=== PATIENT | female | born 1995 | race Caucasian/White ===

== ENCOUNTER → 2021-05-29 | Outpatient (REF) | LOC: M LABSMTC 10:54 | PROVIDERS: ATTEND Pediatrics | DX: Z11.52 Encounter for screening for COVID-19 (principal) ==

== ENCOUNTER 2021-07-12 09:38 | Emergency (ER) | payer OTHER ==
[~2021-07-12] VITALS: Ht 157.5 cm; Wt 91.9 kg
[2021-07-12] MEDS ORDERED: ACET325C5 PO (09:45)
[2021-07-12] MEDS ORDERED: dexameTHASONE 4 MG/ML 1ML VIAL (J1100 PER 1MG) PO ONE ×2 (10:45→10:55)
[2021-07-12] MEDS ORDERED: AMOXICILLIN 500 MG CAP PO ONE (10:45)
[2021-07-12] MEDS ORDERED: AMOX500C PO (10:48)
[2021-07-12] MEDS ORDERED: LIDO2SOL17 PO (10:48)
[2021-07-12 11:19] VITALS: BP 122/64
== END 2021-07-12 11:11 | disposition home or self-care (01) ==
LOC: M ED 09:38
DX: J02.0 Streptococcal pharyngitis (principal)
CPT/HCPCS: 87880; 99283; J1100

== ENCOUNTER → 2021-12-01 | Outpatient (REF) ==
[~2021-12-01] MED LIST: ACET325C5 PO; AMOX500C PO; LIDO2SOL17 PO
== END ==
LOC: M EMP 12:22
PROVIDERS: ATTEND Family Medicine
DX: Z11.52 Encounter for screening for COVID-19 (principal)

== ENCOUNTER → 2022-04-08 | Outpatient (REF) ==
[2022-04-08 10:13] LABS: RSV AMPLIFICATION NEGATIVE (NEGATIVE)
== END ==
LOC: M EMP 08:46
PROVIDERS: ATTEND Family Medicine
DX: Z20.828 Contact with and (suspected) exposure to other viral communicable diseases (principal)

== ENCOUNTER → 2025-01-05 | Outpatient (CLI) | payer MEDICAID ==
[~2025-01-05] MED LIST changes: +LIDO15SO8 PO; -LIDO2SOL17 PO
[2025-01-05 19:20] LABS: PLATELET COUNT, AUTOMATED 423 10^3/uL (150-450)
[2025-01-05 19:46] LABS: HEPATITIS B SURFACE ANTIBODY NEGATIVE (POSITIVE)
[2025-01-05 20:11] LABS: HIV 1&2 SCREEN NEGATIVE (NEGATIVE)
[2025-01-05 20:23] LABS: HEPATITIS C VIRUS ABY INDEX > 11.00 INDEX (<0.8)
[2025-01-07 22:42] LABS: HEPATITIS B CORE ANTIBODY IGG NON-REACTIVE (NON-REACTIVE)
[2025-01-07 23:07] LABS: HEPATITIS A IgG TOTAL REACTIVE (NON-REACTIVE)
[2025-01-09 11:17] LABS: HCV RNA QUANTITATION 905000 IU/mL (NOT DETECTED); HCV RNA log10 5.96 Log IU/mL (NOT DETECTED)
== END ==
LOC: M LAB 16:34
PROVIDERS: ATTEND Physician Assistant
DX: B19.20 Unspecified viral hepatitis C without hepatic coma (principal)

== ENCOUNTER 2025-04-27 09:43 | Emergency (ER) | payer MEDICAID, OTHER ==
[~2025-04-27] VITALS: Ht 157.5 cm; Wt 104.5 kg
[2025-04-27] MEDS ORDERED: SOFO1TAB (09:58)
[2025-04-27] MEDS ORDERED: OSEL75CA PO (11:38)
[2025-04-27] MEDS ORDERED: ONDA-282 PO (11:38)
[2025-04-27 11:40] VITALS: BP 130/74; TEMP 99.2; O2SAT 97
== END 2025-04-27 11:51 | disposition home or self-care (01) ==
LOC: M ED 09:43
DX: J09.X2 Influenza due to identified novel influenza A virus with other respiratory manifestations (principal); B18.2 Chronic viral hepatitis C; Z3A.34 34 weeks gestation of pregnancy; Z79.1 Long term (current) use of non-steroidal anti-inflammatories (NSAID); Z79.899 Other long term (current) drug therapy